=== PATIENT | female | born 1970 | race African-American/Black ===

== ENCOUNTER → 2021-03-04 | Outpatient (CLI) | payer BC ==
[~2021-03-04] MED LIST: ASPIRIN 81M81 MG/TA2 PO; CEPHALEXIN500 M1 PO; DILANTIN 100MG100 MG PO; LIPITOR 40MG TA40 MG PO; LOPRESSOR 225 MG/TAB PO; NORVASC 10MG10 MG PO; PERCOCET 325 MG1 TA2 PO
[2021-03-04 12:47] LABS: BASO % 0.6 % (0.0-2.0); EOS # 0.2 (0.0-0.7); EOS % 3.1 % (0-4.0); GRAN # 3.6 (1.4-6.5); GRAN % 53.2 % (42.2-75.2); HEMATOCRIT 38.9 % (37.0-47.0); HEMOGLOBIN 13.3 g/dl (12.5-16.0); LYMPH # 2.6 (1.2-3.4); LYMPH % 38.1 % (20.0-51.0); MEAN CELL VOLUME 84 fl (80.0-100.0); MEAN CORPUSCULAR HEMOGLOBIN 29 pg (27.0-31.0); MEAN CORPUSCULAR HGB CONC 34 g/dl (33.0-37.0); MEAN PLATELET VOLUME 9.6 fl (7.4-10.4); MONO # 0.3 (0.1-0.6); MONO % 4.6 % (1.7-9.3); PLATELET COUNT 230 K/mm3 (130-400); RED BLOOD COUNT 4.61 M/mm3 (4.10-5.30); REDCELL DISTRIBUTION WIDTH-CV 13.7 % (11.5-14.5)
[2021-03-04 13:02] LABS: ALBUMIN 4.4 gm/dL (3.5-5.0); BILIRUBIN,TOTAL 0.4 mg/dL (0.0-1.0); CALCIUM 10.2 mg/dL (8.4-10.2); CREATININE, serum 0.76 (0.52-1.25); PHENYTOIN (DILANTIN) 15.3 ug/mL (10.0-20.0)
== END ==
LOC: COL.LAB 11:53
PROVIDERS: Psychiatry & Neurology Neurology
DX: R56.9 Unspecified convulsions (principal); Z79.899 Other long term (current) drug therapy

== ENCOUNTER → 2021-03-14 | Outpatient (CLI) | payer BC ==
[2021-03-14 10:35] LABS: HEMATOCRIT 39.1 % (37.0-47.0); HEMOGLOBIN 13.6 g/dl (12.5-16.0); MEAN CELL VOLUME 84 fl (80.0-100.0); MEAN CORPUSCULAR HEMOGLOBIN 29 pg (27.0-31.0); MEAN CORPUSCULAR HGB CONC 35 g/dl (33.0-37.0); MEAN PLATELET VOLUME 9.7 fl (7.4-10.4); PLATELET COUNT 227 K/mm3 (130-400); RED BLOOD COUNT 4.66 M/mm3 (4.10-5.30); REDCELL DISTRIBUTION WIDTH-CV 13.9 % (11.5-14.5)
[2021-03-14 10:46] LABS: CALCIUM 9.6 mg/dL (8.4-10.2); CREATININE, serum 0.68 (0.52-1.25); POTASSIUM 4.3 mmol/L (3.4-5.0)
== END ==
LOC: COL.RAD 08:34
DX: Z01.818 Encounter for other preprocedural examination (principal); D41.00 Neoplasm of uncertain behavior of unspecified kidney; Z85.53 Personal history of malignant neoplasm of renal pelvis

== ENCOUNTER 2021-03-24 14:18 | Inpatient (IN) | payer BC ==
[~2021-03-24] VITALS: Ht 157.5 cm; Wt 86.8 kg
[2021-03-24] VITALS (13 sets, daily range): BP systolic 220; BP diastolic 120; PULSE 125; TEMP 98.9; O2SAT 83–98
[2021-03-24 14:55] LABS: BASO % 0.4 % (0.0-2.0); EOS # 0.2 (0.0-0.7); GRAN # 5.3 (1.4-6.5); GRAN % 71.5 % (42.2-75.2); HEMOGLOBIN 11.9 g/dl (12.5-16.0); LYMPH # 1.3 (1.2-3.4); LYMPH % 17.3 % (20.0-51.0); MEAN CELL VOLUME 82 fl (80.0-100.0); MEAN CORPUSCULAR HEMOGLOBIN 29 pg (27.0-31.0); MEAN CORPUSCULAR HGB CONC 35 g/dl (33.0-37.0); MEAN PLATELET VOLUME 9.9 fl (7.4-10.4); MONO # 0.6 (0.1-0.6); MONO % 7.4 % (1.7-9.3); PLATELET COUNT 272 K/mm3 (130-400); RED BLOOD COUNT 4.18 M/mm3 (4.10-5.30); REDCELL DISTRIBUTION WIDTH-CV 13.2 % (11.5-14.5)
[2021-03-24 14:59] LABS: HEMATOCRIT 34.4 % (37.0-47.0)
[2021-03-24 15:07] LABS: ALANINE AMINOTRANSFERASE 118 U/L (4-34); ALBUMIN 4.3 gm/dL (3.5-5.0); ALKALINE PHOSPHATASE 212 U/L (50-136); ANION GAP 8 mmol/L (7-16); AST,SGOT 161 U/L (15-37); BILIRUBIN,TOTAL 0.9 mg/dL (0.0-1.0); BLOOD UREA NITROGEN 17 mg/dL (7-17); CALCIUM 9.7 mg/dL (8.4-10.2); CARBON DIOXIDE 31 mmol/L (22-30); CREATININE, serum 1.56 (0.52-1.25); GLUCOSE 235 mg/dL (74-106); POTASSIUM 3.9 mmol/L (3.4-5.0); SODIUM 127 mmol/L (137-145); TOTAL PROTEIN 8.1 gm/dL (6.4-8.2)
[2021-03-24 15:16] LABS: CHLORIDE 89 mmol/L (98-107)
[2021-03-24 15:16] LABS: INR 1.1 (0.8-3.0); PROTHROMBIN TIME 12.1 SECONDS (9.7-12.8)
[2021-03-24 15:19] LABS: PARTIAL THROMBOPLASTIN TIME 23.1 SECONDS (26.0-37.0)
[2021-03-24 15:25] LABS: TROPONIN-I < 0.012 ng/mL (0.000-0.035)
--- NOTE | 2021-03-24 17:05 | NUR ---
Dr. Canelo Foster called and requested patient to get 600mg plavix prior to transferring to [facility].
--- NOTE | 2021-03-24 18:39 | NUR ---
PT to ICU at 1556 from ED. PT is intubated. EPI and NS running through L AC IV. ED nurse to give bedside report. First BP is 220/119. DR. Valenzuela bedside. Orders recieved to DC epi drip. Once on monitor PT HR is 125 [address] what appears to ST elevation. An EKG is performed. 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 Aspirin given and topical nitrobid given as ordered, please see eMAR. 1610 NG placed in Right Nare. OG unsuccessful due to swollen tongue. 1630 R forearm 20g IV started. 1645 east catheter inserted with 800cc urine output. PT is coughing and not tolerating ventilator. Propofol drip started at 1615 per order see eMAR. 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 PT placed on [employer] monitor and ventilator. Report given. 1728- HR 104 , 94% on 40% FIO2, RR 20 , BP 124/82 1746- [facility] has left with PT for [facility]. 1750- Report called to Rima in ICU at [facility].
== END 2021-03-24 17:50 | disposition short-term general hospital (02) | DRG 915 ==
LOC: COL.ER 14:18 → ICU 15:53
PROVIDERS: Emergency Medicine; ADMIT Internal Medicine
PROC: 0BH17EZ Insertion of Endotracheal Airway into Trachea, Via Natural or Artificial Opening (ICD-10-PCS; principal; 2021-03-24)
PROC: 5A1935Z Respiratory Ventilation, Less than 24 Consecutive Hours (ICD-10-PCS; 2021-03-24)
DX: T78.3XXA Angioneurotic edema, initial encounter (principal); I21.19 ST elevation (STEMI) myocardial infarction involving other coronary artery of inferior wall; E87.1 Hypo-osmolality and hyponatremia; I95.9 Hypotension, unspecified; E66.9 Obesity, unspecified; I12.9 Hypertensive chronic kidney disease with stage 1 through stage 4 chronic kidney disease, or unspecified chronic kidney disease; N18.9 Chronic kidney disease, unspecified; R73.9 Hyperglycemia, unspecified; R74.01 Elevation of levels of liver transaminase levels; Z90.710 Acquired absence of both cervix and uterus; Z85.528 Personal history of other malignant neoplasm of kidney
CPT/HCPCS: 99223-AI; J0171; J0330; J1200; J1644; J2060; J2250; J2704; J2930; J7030

== ENCOUNTER 2021-04-19 06:07 | Emergency (ER) | payer BC ==
[~2021-04-19] VITALS: Ht 157.5 cm; Wt 86.8 kg
[2021-04-19 06:33] VITALS: TEMP 99
[2021-04-19] MEDS ORDERED: LOPRESSOR 225 MG/TAB PO (07:56)
[2021-04-19] MEDS ORDERED: ASPIRIN 81M81 MG/TA2 PO (07:57)
[2021-04-19] MEDS ORDERED: NORVASC 10MG10 MG PO (07:57)
[2021-04-19] MEDS ORDERED: LIPITOR 40MG TA40 MG PO (07:58)
[2021-04-19] MEDS ORDERED: DILANTIN 100MG100 MG PO (07:58)
[2021-04-19] MEDS ORDERED: PERCOCET 325 MG1 TA2 PO (08:37)
[2021-04-19] MEDS ORDERED: CEPHALEXIN500 M1 PO (08:37)
[2021-04-19 08:39] VITALS: BP 186/106; PULSE 87
== END 2021-04-19 08:48 | disposition home or self-care (01) ==
LOC: COL.ER 06:07
DX: I80.9 Phlebitis and thrombophlebitis of unspecified site (principal); G40.909 Epilepsy, unspecified, not intractable, without status epilepticus; I10 Essential (primary) hypertension; I25.10 Atherosclerotic heart disease of native coronary artery without angina pectoris; Z79.899 Other long term (current) drug therapy; Z79.82 Long term (current) use of aspirin